=== PATIENT | female | born 1950 | race Caucasian/White ===

== ENCOUNTER → 2017-03-10 | Outpatient (CLI) | payer MEDICARE, OTHER ==
[~2017-03-10] MED LIST: ALLEGRA-D 12 H1 EACH PO; ESTROPIPATE0.75 MG PO; FISH OIL1 GM PO; FLONASE16 GM NASBOTH; KEPPRA750 MG PO; MULTIVITAMINS1 EAC2 PO; NORVASC2.5 MG PO; PRILOSEC20 MG PO
== END | disposition short-term general hospital (02) ==
LOC: CLORTH 08:52
DX: M76.32 Iliotibial band syndrome, left leg (principal); M25.562 Pain in left knee; M25.462 Effusion, left knee; Z96.652 Presence of left artificial knee joint

== ENCOUNTER → 2017-04-21 | Outpatient (CLI) | payer MEDICARE, OTHER | END | disposition short-term general hospital (02) | LOC: CLORTH 09:32 | DX: M25.562 Pain in left knee (principal); M25.462 Effusion, left knee; Z96.652 Presence of left artificial knee joint ==